=== PATIENT | male | born 1985 | race Caucasian/White ===

== ENCOUNTER 2017-02-26 11:08 | Emergency (ER) | payer MEDICAID ==
[~2017-02-26] VITALS: Wt 70.0 kg
[2017-02-26] MEDS ORDERED: ANR PR (13:30)
[2017-02-26] MEDS ORDERED: DOCU240C55 PO (13:31)
--- NOTE | 2017-02-26 14:56 | ERD ---
ER Documentation Chief Complaint Date/Time DATE: 02/26/17 TIME: 14:50 Chief Complaint rectal bleeding for 2 weeks, skin wnl, has hx of hemmerrhoids HPI This is a 31-year-old male presents to the ER with rectal bleeding for the last 2 weeks. Patient states he has had a past medical history of hemorrhoids, and for the last 2 weeks he has been having bright red blood per rectum with bowel movements. He states that it hurts whenever he has a bowel movement and describes pain as a burning sensation. Patient denies any fever or chills. He denies rectal pain otherwise. He denies any dizziness, shortness of breath or weakness. Patient denies any nausea vomiting or diarrhea. Patient states that sometimes he is constipated, however has not been constipated lately. ROS 12 point review of systems was done, all negative except per HPI. Medications Home Meds Active Scripts Docusate Calcium* (Stool Softener*) 240 Mg Capsule, 240 MG PO DAILY for 5 Days, CAP Prov:JOHN PAUL FARLEY 02/26/17 Hard Fat/Phenylephrine* (Anusol*) 1 Supp Supp, 1 SUPP VT BID for 7 Days, SUPP Prov:JOHN PAUL FARLEY 02/26/17 PMhx/Soc History of Surgery: Yes (appendectomy ) Hx Neurological Disorder: No Hx Respiratory Disorders: No Hx Cardiac Disorders: No Hx Psychiatric Problems: No Hx Miscellaneous Medical Probl: No Hx Alcohol Use: No Hx Substance Use: No Hx Tobacco Use: No Physical Exam Vitals Vital Signs Date Time Temp Pulse Resp B/P Pulse Ox O2 Delivery O2 Flow Rate FiO2 02/26/17 11:16 98.8 78 20 134/73 98 Physical Exam GENERAL: The patient is well developed and appropriate for usual state of health , in no apparent distress. HEENT: Atraumatic. CHEST: Clear to auscultation bilaterally. There are no rales, wheezes or rhonchi. HEART: Regular rate and rhythm. No murmurs, clicks, rubs or gallops. ABDOMEN: Soft, nontender and nondistended. BACK: No midline or flank tenderness. : external hemorroid is seen, no masses, no rectal pain, no severe bleeding. NEURO: Alert and oriented. SKIN:The skin is warm and dry. Results 24 hrs Laboratory Tests Test 9/6/17 13:00 Stool Occult Blood NEGATIVE Procedures/MDM This is a 31-year-old male presents now with rectal bleeding, patient does have a hemorrhoid on physical examination likely the cause of his rectal bleeding. Occult blood test was negative. At this time patient is extremely well- appearing suspicion for severe anemia is low, there was no severe bleeding on physical examination. Patient will be sent home with docusate and with Anusol, he was told to follow-up with his primary care doctor within 1-2 days and possibly see a assembler golf wood head if bleeding continues for possible colonoscopy. ER sooner if symptoms worsen. My medical decision making shared with the patient he understands and agrees with plan. Departure Diagnosis: Primary Impression: Hemorrhoid Condition: Stable Patient Instructions: Hemorrhoids Ref[facility]: [facility] Jenny se hou hecho un examen mdico de control que le indica que no est en glenis condicin que requiera tratamiento urgente en el Departamento de Emergencia. Un estudio ms profundo y el tratamiento de kumari condicin pueden esperar sin ningn riesgo hasta que usted sea atendida/o en el consultorio de kumari mdico o glenis cl sharon. Es responsabilidad suya arreglar glenis rose para el seguimiento del faith. MANEJO DE CONDICIONES NO URGENTES EN EL FUTURO 1) Si usted tiene un mdico de atencin primaria: Usted debera llamar a kumari mdico de atencin primaria antes de venir al departamento de emergencia. Despus de las horas de consultorio, kumari doctor o kumari asociado/a est disponible por telfono. El mdico o enfermero de vikas en el servicio telefnico puede asesorarle por angelo medio para atender el problema, o faith contrario se puede programar glenis rose. 2) Si usted no tiene un mdico de atencin primaria: Llame al mdico o clnica de referencia que aparece abajo jesús las horas de consultorio para hacer glenis rose para que le vean. CLINICAS: [facility] [phone] [facility] [phone] [facility] [phone] [place] [address] [phone] [place] [address] [phone] [facility] [phone] [address] Additional Instructions: Llame al doctor MAANA y luis felipe glenis ROSE PARA DENTRO DE 1-2 DUTTA.Dgale a la secretaria que nosotros le instruimos hacer esta rose.Avise o llame si kumari condicin se empeora antes de la rose. Regresa aqui si peor o no mejor. JOHN PAUL FARLEY Feb 26, 2017 14:56
== END 2017-02-26 13:52 | disposition home or self-care (01) ==
LOC: FTE 11:08
DX: K64.4 Residual hemorrhoidal skin tags (principal)
CPT/HCPCS: 82270; Z7502; 99283

== ENCOUNTER 2017-11-10 08:42 | Emergency (ER) | END 2017-11-10 11:12 | disposition home or self-care (01) ==